=== PATIENT | male | born 1975 | race Caucasian/White ===

== ENCOUNTER 2018-09-23 18:28 | Emergency (ER) | payer MEDICAID, OTHER ==
[~2018-09-23] VITALS: Ht 160 cm; Wt 98.7 kg
[2018-09-23 18:39] VITALS: Ht 160 cm; Wt 98.7 kg
[2018-09-23] MEDS ORDERED: KETOROLAC 60 MG INJ IV STA (22:49)
[2018-09-23] MEDS ORDERED: METHYLPREDNISOLONE 125 MG INJ IV ONE (23:00)
[2018-09-24] MEDS ORDERED: SOD CHLORIDE 0.9% 100 ML ONE (00:56)
[2018-09-24] MEDS ORDERED: IOHEXOL 300MG/ML 150 ML BTL ONE (00:56)
--- NOTE | 2018-09-24 00:58 | ERD ---
ER Documentation Chief Complaint Chief Complaint C/O LT EAR, LT JAW AND LT NECK PAIN X3 WEEKS HPI History of Present Illness: 43-year-old male with no past medical history coming in today with complaint of left ear, left jaw swelling, left neck pain is been worsening over the past 3 weeks. Patient reports swelling has been intermittent and changing in size depending on if he takes naproxen/ibuprofen. Patient denies fever, chills, difficulty breathing, difficulty swallowing. At home pharmacological/nonpharmacological treatment for symptoms: NSAIDs Denies social concerns; Denies recent foreign travel ROS All systems reviewed and are negative except as per history of present illness. Medications Home Meds Active Scripts Naproxen* (Naproxen*) 500 Mg Tablet, 500 MG PO BID PRN for PAIN AND/OR INFLAMMATION, #30 TAB Prov:UNIQUE VALLADARES NP 09/24/18 Prednisone* (Prednisone*) 20 Mg Tab, 40 MG PO DAILY for SWELLING/INFLAMMATION for 5 Days, TAB Prov:UNIQUE VALLADARES NP 09/24/18 Amoxicillin/Potassium Clav (Amox-Clav 875-125 mg Tablet) 875-125 mg Tab, 1 TAB PO BID for THROAT INFECTION for 7 Days, #20 TAB Prov:UNIQUE VALLADARES NP 09/24/18 Allergies Allergies: Coded Allergies: No Known Allergy (Unverified , 09/23/18) PMhx/Soc Medical and Surgical Hx: pt denies Medical Hx History of Surgery: Yes (left tibia) Hx Alcohol Use: Yes (socially) Hx Substance Use: No Hx Tobacco Use: No Smoking Status: Never smoker FmHx Family History: diabetes; No coronary disease Physical Exam Vitals Vital Signs Date Temp Pulse Resp B/P (MAP) Pulse Ox O2 O2 Flow FiO2 Time Delivery Rate 09/24/18 98.2 77 16 110/72 99 Room Air 01:50 (85) 09/23/18 99.0 103 19 117/65 96 18:39 (82) Physical Exam Const: No acute distress Head: Atraumatic Eyes: Normal Conjunctiva ENT: Normal External Ears, Nose. Oropharynx clear. Mucosal edema noted, unable to fully visualize posterior pharynx. Neck: Full range of motion. No meningismus. Palpable left cervical lymph node, tenderness to palpation noted. Resp: Clear to auscultation bilaterally Cardio: Regular rate and rhythm, no murmurs Abd: Soft, non tender, non distended. Normal bowel sounds Skin: No petechiae or rashes Back: No midline or flank tenderness Ext: No cyanosis, or edema Neur: Awake and alert Psych: Normal Mood and Affect Result Diagram: 09/23/182 09/23/182 Results 24 hrs Laboratory Tests Test 09/23/18 23:12 White Blood Count 6.5 10^3/ul Red Blood Count 5.01 10^6/ul Hemoglobin 15.2 g/dl Hematocrit 43.9 % Mean Corpuscular Volume 87.6 fl Mean Corpuscular Hemoglobin 30.3 pg Mean Corpuscular Hemoglobin Concent 34.6 g/dl Red Cell Distribution Width 11.9 % Platelet Count 198 10^3/UL Mean Platelet Volume 8.9 fl Immature Granulocytes % 0.200 % Neutrophils % 60.2 % Lymphocytes % 26.6 % Monocytes % 10.3 % Eosinophils % 2.2 % Basophils % 0.5 % Nucleated Red Blood Cells % 0.0 /100WBC Immature Granulocytes # 0.010 10^3/ul Neutrophils # 3.9 10^3/ul Lymphocytes # 1.7 10^3/ul Monocytes # 0.7 10^3/ul Eosinophils # 0.1 10^3/ul Basophils # 0.0 10^3/ul Nucleated Red Blood Cells # 0.0 10^3/ul Sodium Level 142 mmol/L Potassium Level 4.3 mmol/L Chloride Level 103 mmol/L Carbon Dioxide Level 30 mmol/L Anion Gap 9 Blood Urea Nitrogen 14 mg/dl Creatinine 0.73 mg/dl Est Glomerular Filtrat Rate mL/min > 60 mL/min Glucose Level 97 mg/dl Calcium Level 9.2 mg/dl Total Bilirubin 0.4 mg/dl Direct Bilirubin 0.00 mg/dl Indirect Bilirubin 0.4 mg/dl Aspartate Amino Transf (AST/SGOT) 28 IU/L Alanine Aminotransferase (ALT/SGPT) 35 IU/L Alkaline Phosphatase 109 IU/L Total Protein 8.5 g/dl Albumin 4.4 g/dl Globulin 4.10 g/dl Albumin/Globulin Ratio 1.07 Current Medications Medications Dose Sig/Alonso Start Time Status Last (Trade) Ordered Route PRN Stop Time Admin Dose Reason Admin Ketorolac 30 mg ONCE STAT 09/23/18 DC 09/23/18 Tromethamine IV 22:49 09/23/18 23:19 (Toradol) 22:53 125 mg ONCE ONCE 09/23/18 DC 09/23/18 Methylprednis IV 23:00 09/23/18 23:19 olone Sodium 23:01 Succinate (Solu-Medrol) Sodium 100 ml @ ud STK-MED 09/24/18 DC 09/24/18 Chloride ONCE .ROUTE 00:56 09/24/18 01:07 00:57 Iohexol 150 ml STK-MED 09/24/18 DC 09/24/18 (Omnipaque ONCE .ROUTE 00:56 09/24/18 01:06 300mg/ ml) 00:57 Procedures/MDM ED course includes a thorough examination and history. Dr. Pena to the bedside to evaluate patient. Medications: Methylprednisolone ketorolac, tramadol Imaging: CT neck with contrast Labs: CBC, CMP Dr. Pena agrees with plan of care. Low suspicion for life-threatening medical emergency. Low suspicion for HEENT or infectious emergency requires hospitalization or immediate surgical intervention. Low suspicion for IV or IM antibiotics needed. Otherwise healthy patient presenting with constellation of symptoms likely representing enlarged lymph node/mucosal edema as characterized by history, physical exam findings, lab findings, radiology findings. CBC: no e/o of systemic infection or severe anemia. CMP: no e/o severe acidosis, alkalosis, renal failure, diabetic ketoacidosis, liver disease. CT results showing: MPRESSION: Mild mucosal edema within the oropharynx and hypopharynx with mild prominence of the left palatine tonsil. No definite mass or fluid collection is identified; however, clinical correlation with visual examination and follow-up is recommended. Bilateral enlarged cervical level II lymph nodes, with the largest on the left measuring 2.4 x 2.1 cm. Right maxillary sinus retention cyst. .Jonathon Echeverria MD, MD No respiratory distress, otherwise relatively well appearing and nontoxic. Patient reassessment includes patient without dysphasia or difficulty swallowing. Patient hemodynamically stable and no longer tachycardic. Patient educated on diagnoses, prescriptions, follow-up care, return precautions. Strict return precautions given for worsening condition; questions answered discharge. Given Augmentin for antibiotics in case of infectious process. Disposition for discharge with followup in 2 days with PCP/clinic, possible referral to ENT may be warranted.. Departure Diagnosis: Primary Impression: Enlarged lymph node Additional Impression: Mucosal edema Condition: Stable UNIQUE VALLADARES NP September 24, 2018 00:58
[2018-09-24] MEDS ORDERED: PRED20TA PO (01:45)
[2018-09-24] MEDS ORDERED: AMOX1TAB10 PO (01:45)
[2018-09-24] MEDS ORDERED: NAPR-688 PO (01:47)
[2018-09-24 01:50] VITALS: BP 110/72; PULSE 77; RESP 16
== END 2018-09-24 02:21 | disposition home or self-care (01) ==
LOC: FTE 18:28
DX: R59.0 Localized enlarged lymph nodes (principal)
CPT/HCPCS: 36415; 70491; 80053; 85025; 96374; 96375; J1885; J2930; Q9967; Z7502; Z7610